=== PATIENT | female | born 1950 | race Caucasian/White ===

== ENCOUNTER → 2020-03-27 08:49 | Outpatient (BNVA) | payer BC, SELFPAY | PROVIDERS: PCP Internal Medicine; Visit Provider Hospitalist ==

== ENCOUNTER 2020-11-20 07:54 | Outpatient (REF) | payer MEDICARE, SELFPAY ==
--- NOTE | 2020-11-20 16:45 | PFT_ITS ---
Forced vital capacity is slightly decreased. FEV1, [id number], and MVV are normal. Post bronchodilator therapy, there is a small improvement in FVC, FEV1, and significant improvement in [id number]. Total lung capacity and residual volume normal. Diffusion capacity normal. CONCLUSION: A mild bronchospastic component with good response to bronchodilator therapy is noted. These findings are consistent with mild bronchial asthma. Clinical correlation is recommended. MD EZRA Jade/ELPIDIO / [id number]
== END 2020-11-20 07:55 | disposition home or self-care (01) ==
LOC: HO.RESP 07:54
PROVIDERS: PCP Family Medicine; Visit Provider Hospitalist
DX: J98.4 Other disorders of lung (principal)
CPT/HCPCS: 94060; 94727; 94729

== ENCOUNTER → 2020-11-21 10:08 | Outpatient (BNVA) | payer MEDICARE, SELFPAY | PROVIDERS: PCP Family Medicine; Visit Provider Hospitalist | DX: J98.4 Other disorders of lung (principal); J45.20 Mild intermittent asthma, uncomplicated; D86.9 Sarcoidosis, unspecified; R91.8 Other nonspecific abnormal finding of lung field | CPT/HCPCS: 99212 ==

== ENCOUNTER → 2021-11-27 08:50 | Outpatient (BNVA) | payer MEDICARE, SELFPAY | PROVIDERS: PCP Family Medicine; Visit Provider Hospitalist | DX: J45.20 Mild intermittent asthma, uncomplicated (principal); D86.9 Sarcoidosis, unspecified; J98.4 Other disorders of lung; R91.8 Other nonspecific abnormal finding of lung field | CPT/HCPCS: 99212 ==

== ENCOUNTER 2023-02-25 10:18 | Outpatient (AMB) | payer MEDICARE, SELFPAY ==
[2023-02-25 10:24] VITALS: PULSE 80; O2SAT 95; BMI 35.8
--- NOTE | 2023-02-25 10:24 | MHC.OFFVIS ---
Intake Vital Signs 02/25/23 10:24 Height 5 ft 5 in Weight 215 lb BMI 35.8 Pulse 80 Pulse Source Pulse Oximeter Pulse Oximetry (%) 95 Oxygen Delivery Method Room Air Intake Visit Reasons: S/p ct chest Dairy Nutritionist Required: No Allergies acetaminophen [Midol] Allergy (Severe, Verified 02/25/23 10:25) Rash pamabrom [Midol] Allergy (Severe, Verified 02/25/23 10:25) Rash PCN Allergy (Severe, Uncoded 02/25/23 10:25) Rash Sulfa Drugs Allergy (Severe, Uncoded 02/25/23 10:25) Rash HPI HPI Comments History of Present Illness Details The patient is a 72-year-old woman with a known history of asthma, sarcoidosis and pulmonary nodules. She has been complaining of dyspnea on exertion. Her previous pulmonary function studies also demonstrated a restrictive pattern. He was reassuring she did not have any interstitial lung disease and or any parenchymal lung disease on her CT scan from January 2018. She did have stable pulmonary nodules. The patient is due for another CT scan and will plan to do it early next year. The patient now is going to the gym and is going to start weight watchers to see if she can decrease her BMI. She continues to use her rescue inhaler prior to exercise. She has been taking Singulair at nighttime with good effect. Otherwise the patient is without any other complaints. 08/23/2019 the patient is here for pulmonary follow-up visit. She has underlying sarcoidosis and asthma. She continues to have dyspnea on exertion. She did have pulmonary function studies demonstrating a restrictive ventilatory defect consistent with restrictive lung disease. Compared to her previous pulmonary function studies there is a significant decrease in the her diffusing capacity. We did request a CT scan of the chest that was denied by her insurance for unclear reason. She has underlying pulmonary nodules, restrictive lung disease, abnormal PFTs and she symptomatic. Therefore, I will reorder the CT scan in order to assess her ongoing symptoms and her abnormal PFTs. She continues on her respiratory therapy with partial effect. 11/27/2021 the patient is here for a pulmonary follow-up visit. Reason in the last few weeks she started developing worsening respiratory symptoms with cough and shortness of breath. Positive sick contacts. COVID testing was negative. She was using her inhaler more often. She is now closed at the baseline although she still feels some shortness of breath with exertion. Patient last CT scan was last year in . it appeared that she had multiple pulmonary nodules. Patient also has a significant history of lung cancer in the family both her sister and father. Therefore, at this point will go ahead and wait for her underlying symptoms to improve will request a CT scan to monitor closely the pulmonary nodules. The patient is a worsening symptoms will consider getting PET scan12 earlier to assess the underlying process. She continues use respiratory medicine and also her allergy medicine. Denies any visual changes or any other finding to suggest active sarcoidosis. 02/25/2023 The patient is here for a pulmonary follow up visit. Overall doing well. Denies any new respiratory complaints. Does complain of exertional dyspnea, mild in severity. She is looking to start weight watchers to help with her weight management. Has not requiered her SEVERIANO. We did review her latest CT chest 02/03/2023 demonstrating pulmnary nodules and some tree in bud. No evidence of active sarcoidosis at this time. [facility] Medical History (Updated 02/25/23 @ 10:48 by Maksim Fitzpatrick MD) Asthma Pulmonary nodules Chronic restrictive lung disease Sarcoidosis Social History (Updated 11/21/20 @ 10:20 by ROSHNI Lion) Patient Tobacco Use Status: Never used Tobacco Review of Systems Const Denies night sweats and Reports weight gain ENT Denies change in voice, Denies lip swelling, Denies mouth pain, Reports nasal congestion, Reports nasal discharge and Denies tongue swelling Card Denies chest pain and Reports dyspnea on exertion Resp Reports cough and Reports dyspnea on exertion GI Denies abdominal pain Musc Denies no additional complaints Neuro Denies Neuro-related abnormal movements Psych Denies no additional complaints Sam/Lymph Denies easy bleeding and Denies lymphadenopathy Aller/Immun Denies lip swelling and Denies tongue swelling Physical Exam Vital Signs: Last Vital Signs Pulse 80 02/25/23 10:24 Pulse Ox 95 02/25/23 10:24 Oxygen Delivery Method Room Air 02/25/23 10:24 BMI result Body Mass Index 35.8 Const General: alert Neck Neck: Yes normal visual inspection, Yes full ROM and Yes no lymphadenopathy Chest Chest palpation & inspection: normal inspection of the chest Resp Auscultation: diminished lung sounds Cardio Rate: regular rate Rhythm: regular rhythm Heart sounds: S2 normal heart sound present GI Palpation (GI): Soft to palpation and nontender Auscultation: normal bowel sounds General: Yes no CVA tenderness Back/Spine/Pelvis Back: no CVA tenderness Skin General skin exam: rashes and/or lesions noted Assessment & Plan Assessment & Plan (1) Sarcoidosis: Code(s): D86.9 - Sarcoidosis, unspecified Plan: SEVERIANO as needed (2) Chronic restrictive lung disease: Code(s): J98.4 - Other disorders of lung Plan: No longer appreciated on recent pulmonary function studies with a normal total lung capacity now (3) Pulmonary nodules: Code(s): R91.8 - Other nonspecific abnormal finding of lung field (4) Asthma: Code(s): J45.909 - Unspecified asthma, uncomplicated Qualifiers: Asthma complication type: uncomplicated Asthma persistence: intermittent Asthma severity: mild Qualified Code(s): J45.20 - Mild intermittent asthma, uncomplicated Plan CT chest in 12 months continue singular daily short-acting beta agonist as needed follow-up in 1 year Medications: Changed From albuterol sulfate 90 mcg/actuation (Ventolin HFA) 2 puffs PO Q4-6H PRN 54 grams 0RF for wheezing To albuterol sulfate 90 mcg/actuation (Ventolin HFA) 2 puffs PO Q4-6H 90 days 54 grams 3RF for wheezing Coding Level of Care Code Est Pt Level 4 (90881) Diagnoses Sarcoidosis D86.9 Chronic restrictive lung disease J98.4 Pulmonary nodules R91.8 Mild intermittent asthma without complication J45.20 Asthma complication type: uncomplicated Asthma persistence: intermittent Asthma severity: mild Time Spent (min) 16
== END 2023-02-25 10:45 | disposition home or self-care (01) ==
PROVIDERS: PCP Family Medicine; Visit Provider Hospitalist
DX: D86.9 Sarcoidosis, unspecified (principal); J98.4 Other disorders of lung; R91.8 Other nonspecific abnormal finding of lung field; J45.20 Mild intermittent asthma, uncomplicated
CPT/HCPCS: 99214

== ENCOUNTER → 2023-02-25 10:18 | Outpatient (BNVA) | payer MEDICARE, SELFPAY | PROVIDERS: PCP Family Medicine; Visit Provider Hospitalist | DX: D86.9 Sarcoidosis, unspecified (principal); J98.4 Other disorders of lung; R91.8 Other nonspecific abnormal finding of lung field; J45.20 Mild intermittent asthma, uncomplicated; Z79.899 Other long term (current) drug therapy | CPT/HCPCS: 99212 ==

== ENCOUNTER 2024-03-30 14:48 | Outpatient (AMB) | payer MEDICARE, SELFPAY ==
--- NOTE | 2024-03-30 14:50 | MHC.OFFVIS ---
Vital Signs 03/30/24 14:51 Height 5 ft 4 in Weight 227 lb 1.218 oz BMI 39.0 BP 142/76 H Blood Pressure Location Rt brachial Position Sitting Pulse 88 Pulse Source Pulse Oximeter Pulse Oximetry (%) 97 Oxygen Delivery Method Room Air Intake Visit Reasons: Asthma Allergies acetaminophen [Midol] Allergy (Severe, Verified 03/30/24 14:53) Rash pamabrom [Midol] Allergy (Severe, Verified 03/30/24 14:53) Rash PCN Allergy (Severe, Uncoded 03/30/24 14:53) Rash Sulfa Drugs Allergy (Severe, Uncoded 03/30/24 14:53) Rash HPI Comments Details: The patient is a 73-year-old woman with a known history of asthma, sarcoidosis and pulmonary nodules. She has been complaining of dyspnea on exertion. Her previous pulmonary function studies also demonstrated a restrictive pattern. He was reassuring she did not have any interstitial lung disease and or any parenchymal lung disease on her CT scan from January 2018. She did have stable pulmonary nodules. The patient is due for another CT scan and will plan to do it early next year. The patient now is going to the gym and is going to start weight watchers to see if she can decrease her BMI. She continues to use her rescue inhaler prior to exercise. She has been taking Singulair at nighttime with good effect. Otherwise the patient is without any other complaints. 08/23/2019 the patient is here for pulmonary follow-up visit. She has underlying sarcoidosis and asthma. She continues to have dyspnea on exertion. She did have pulmonary function studies demonstrating a restrictive ventilatory defect consistent with restrictive lung disease. Compared to her previous pulmonary function studies there is a significant decrease in the her diffusing capacity. We did request a CT scan of the chest that was denied by her insurance for unclear reason. She has underlying pulmonary nodules, restrictive lung disease, abnormal PFTs and she symptomatic. Therefore, I will reorder the CT scan in order to assess her ongoing symptoms and her abnormal PFTs. She continues on her respiratory therapy with partial effect. 11/27/2021 the patient is here for a pulmonary follow-up visit. Reason in the last few weeks she started developing worsening respiratory symptoms with cough and shortness of breath. Positive sick contacts. COVID testing was negative. She was using her inhaler more often. She is now closed at the baseline although she still feels some shortness of breath with exertion. Patient last CT scan was last year in . it appeared that she had multiple pulmonary nodules. Patient also has a significant history of lung cancer in the family both her sister and father. Therefore, at this point will go ahead and wait for her underlying symptoms to improve will request a CT scan to monitor closely the pulmonary nodules. The patient is a worsening symptoms will consider getting PET scan12 earlier to assess the underlying process. She continues use respiratory medicine and also her allergy medicine. Denies any visual changes or any other finding to suggest active sarcoidosis. 02/25/2023 The patient is here for a pulmonary follow up visit. Overall doing well. Denies any new respiratory complaints. Does complain of exertional dyspnea, mild in severity. She is looking to start weight watchers to help with her weight management. Has not requiered her SEVERIANO. We did review her latest CT chest 02/03/2023 demonstrating pulmnary nodules and some tree in bud. No evidence of active sarcoidosis at this time. 03/30/2024 the patient is here for a pulmonary follow-up visit. Overall she has been doing well for the last year. She has not had any respiratory complaints. Her became sick and she would be very concerned about him. She tried to switch actually her appointment for him but could not be done. For now the patient continues use her rescue inhaler as needed. She has not had any imaging studies since 02/16/2023. At that point she has stable pulmonary nodules. Will have her get an x-ray at this time. She also continues with Singulair. She will have an x-ray at her convenience and she will follow-up in a year. If she has any issues prior to that she will call for an earlier assessment. [facility] Medical History (Updated 02/25/23 @ 10:48 by Maksim Fitzpatrick MD) Asthma Pulmonary nodules Chronic restrictive lung disease Sarcoidosis Social History (Updated 11/21/20 @ 10:20 by ROSHNI Lion) Patient Tobacco Use Status: Never used Tobacco Review of Systems Const Denies night sweats and Reports weight gain ENT Denies change in voice, Denies lip swelling, Denies mouth pain, Reports nasal congestion, Reports nasal discharge and Denies tongue swelling Card Denies chest pain and Reports dyspnea on exertion Resp Reports cough and Reports dyspnea on exertion GI Denies abdominal pain Musc Denies no additional complaints Neuro Denies Neuro-related abnormal movements Psych Denies no additional complaints Sam/Lymph Denies easy bleeding and Denies lymphadenopathy Aller/Immun Denies lip swelling and Denies tongue swelling Physical Exam Vital Signs: Last Vital Signs Pulse 88 03/30/24 14:51 BP 142/76 H 03/30/24 14:51 Pulse Ox 97 03/30/24 14:51 Oxygen Delivery Method Room Air 03/30/24 14:51 BMI result Body Mass Index 39.0 Const General: alert Neck Neck: Yes normal visual inspection, Yes full ROM and Yes no lymphadenopathy Chest Chest palpation & inspection: normal inspection of the chest Resp Auscultation: diminished lung sounds Cardio Rate: regular rate Rhythm: regular rhythm Heart sounds: S2 normal heart sound present GI Palpation (GI): Soft to palpation and nontender Auscultation: normal bowel sounds General: Yes no CVA tenderness Back/Spine/Pelvis Back: no CVA tenderness Skin General skin exam: rashes and/or lesions noted Assessment & Plan Assessment & Plan (1) Sarcoidosis: Code(s): D86.9 - Sarcoidosis, unspecified Category: Medical Plan: SEVERIANO as needed (2) Chronic restrictive lung disease: Code(s): J98.4 - Other disorders of lung Category: Medical Plan: No longer appreciated on recent pulmonary function studies with a normal total lung capacity now (3) Pulmonary nodules: Code(s): R91.8 - Other nonspecific abnormal finding of lung field Category: Medical (4) Asthma: Code(s): J45.909 - Unspecified asthma, uncomplicated Category: Medical Qualifiers: Asthma complication type: uncomplicated Asthma persistence: intermittent Asthma severity: mild Qualified Code(s): J45.20 - Mild intermittent asthma, uncomplicated Plan CXR continue singular daily short-acting beta agonist as needed follow-up in 1 year Orders: Orders XR chest 2V 03/30/24 D86.9 - Sarcoidosis, unspecified Coding Level of Care Code Est Pt Level 4 (90021) Diagnoses Sarcoidosis D86.9 Chronic restrictive lung disease J98.4 Pulmonary nodules R91.8 Mild intermittent asthma without complication J45.20 Asthma complication type: uncomplicated Asthma persistence: intermittent Asthma severity: mild Time Spent (min) 16
--- OUTSIDE RECORDS SUMMARY | 2024-03-30 14:50 | XMS_ITS | Clinical Summary ---
Author Organization [facility] Address [phone] [facility] [place] [address] Care Team Providers Care Bender Machine Operator Name Role Phone Gissell Vale MD Primary Care Provider [phone] Allergies Active Allergy Reactions Criticality Noted Date Comments Aspirin-Caffeine 05/12/2022 Other reaction(s): paplatations Not ALLERGIC Epinephrine Palpitations Low 09/30/2023 Penicillins GI Upset,Hives,Itching,Ra sh,Swelling Low 02/10/1984 Sulfamethoxazole-Trime thoprim GI Upset,Palpitations Low 03/23/2016 Medications Medication Sig Dispensed Refills Start Date End Date Status albuterol sulfate (PROAIR HFA INHL) 11/22/2017 Active fluticasone propionate (FLOVENT HFA) 110 mcg/actuation inhaler 110 mcg as needed. 04/02/2022 Active fluocinolone (DERMA-SMOOTHE) 0.01 % external oil Activ e cycloSPORINE (RESTASIS) 0.05 % suspension Restasis 0.05 % eye drops in a dropperette Active cetirizine (ZYRTEC) 10 MG tablet 09/04/2015 Active calcipotriene-betam ethasone (TACLONEX SCALP) external suspension Taclonex 0.005 %-0.064 % topical suspension Active calcium carbonate 750 mg (300 mg elemental) Chew 2009 Active metroNIDAZOLE (METROCREAM) 0.75 % cream metronidazole 0.75 % topical cream Active montelukast (SINGULAIR) 10 mg tablet montelukast 10 mg tablet 11/22/2020 Active COLLAGEN MISC 3 Scoops by Miscellaneous route. Active Medication-Free TextIndications:WEE N 2 tablets. Indications: WEEN Active b complex vitamins capsule Take 1 capsule by mouth daily. Active Active Problems Problem Noted Date Diagnosed Date Sarcoidosis 01/22/2024 Hair loss 01/22/2024 Multinodular thyroid 05/12/2022 Assessment & Plan (05/12/2022 12:56 PM EDT): History of enlarged thyroid since 1978. Was on LT4 suppression until 1999. First met patient in 09/2018 to follow-up on bilateral thyroid nodules after she had a nondiagnostic FNA of the dominant right 1.3 cm nodule in 02/2018. Follow-up ultrasounds have been stable. Last ultrasound report from 10/22/2021 reviewed, reported stable bilateral small nodules. Overall thyroid size is normal, her globus feeling and some dysphagia is unlikely related to her thyroid. She is clinically euthyroid. Last TSH was normal 1.35 in 08/2021, done by PCP. Since her nodules have been stable we decided to stop doing routine ultrasounds. Encouraged patient to a feels any changes in the thyroid bed. Reviewed symptoms of hypo and hyperthyroidism, and patient to if her concerned. Right lobe 5.1 cc, left lobe 5.1 cc. Right upper to mid 1.2 right nodules unchanged. Solid, TI-RADS 4 nodule stable compared to 07/31/2020. Right mid to inferior 1 cm nodule, TI-RADS 4 stable. Multiple subcentimeter right nodules unchanged. Left upper 1.1 cm mixed cystic and solid, TI-RADS 3 nodule stable. Left lower 1.5 cm spongiform, TI-RADS 2 nodule stable. Encounters Date Type Department Care Team Description 02/27/2024 Orders Only [facility] [address] [place] [address] [place] [id number] Debra Daley MA Sarcoidosis; Hair loss; Nontoxic multinodular goiter 01/17/2024 9:20 AM EST Office Visit [facility] [address] [place] [address] Lottie Gavin MD Multinodular thyroid (Primary Dx); Nontoxic multinodular goiter; Hair loss; Sarcoidosis from Last 3 Months Immunizations Name Administration Dates Next Due COVID-19 (Pre-12/20) Pfizer Vaccine, mRNA, PF 11/21/2020,04/23/2020,04/02/2020 DTaP 01/01/2019 Hepatitis B 02/28/1993 Influenza Quadrivalent Prese rvative Free IM 12/17/2021 Influenza Quadrivalent w/ Pr eservative IM 12/09/2020,12/11/2019,01/01/2019,01/10,01/19/2016 Influenza Trivalent w/ Preservative IM 5,11/28/2013 Pneumococcal conjugate PCV13 12/29/2017 Pneumococcal polysaccharide PPSV23 11/28/2018 Tdap 11/28/2018,11/20/2009 Zoster live 12/20/2013 Social History Tobacco Use Types Packs/Day Years Used Date Smoking Tobacco: Never Smokeless Tobacco: Never Tobacco Cessation:Counseling Given: Not Answered Alcohol Use Standard Drinks/Week Comments Yes 0 (1 standard drink = 0.6 oz pur e alcohol) 3 monthly wine Education Answer Date Recorded Are you interested in more education? Not on kaitlynn e 06/26/2022 Are you concerned about learning? Not on file 06/26/2022 No 06/26/2022 No 06/26/2022 Digital Access Answer Date Recorded No 07/25/2022 No 07/25/2022 Reliable internet access at home? Not on file 07/25/2022 Device with a working camera? Not on file Sex and Gender Information Value Date Recorded Sex Assigned at Not on file Gender Identity Not on file Sexual Orientation Not on file Last Filed Vital Signs Vital Sign Reading Time Taken Comments Blood Pressure 130/60 01/17/2024 9:39 AM EST Pulse 60 01/17/2024 9:39 AM EST Temperature - - Respiratory Rate - - Oxygen Saturation 96% 01/17/2024 9:39 AM EST Inhaled Oxygen Concentration - - Weight 106.1 kg (233 lb 12.8 oz) 01/17/2024 9:39 AM EST Height 164.5 cm (5' 4.76 ) 01/17/2024 9:39 AM ES T Body Mass Index 39.19 01/17/2024 9:39 AM EST Plan of Treatment Health Maintenance Due Date Last Done Comments LIPID PANEL 1952 DEPRESSION SCREENING 1964 HEPATITIS B SCREENING 1970 HEPATITIS C SCREENING 1970 MAMMOGRAM 1992 COLOGUARD 1997 COLONOSCOPY 1997 COLORECTAL CANCER SCREENING 1997 FIT TEST 1997 FOBT 1997 SIGMOIDOSCOPY 1997 VIRTUAL COLONOSCOPY 1997 ZOSTER VACCINES (2 of 3) 02/14/2014 12/20/2013 OSTEOPOROSIS SCREENING INITIAL (ONE-TIME) 2017 INFLUENZA VACCINE (#1) 2023 , 12/17/2021, 12/13/2020, Additional history exists COVID-19 VACCINE ( season) 2023 12/05/2021, 06/09/2021, 11/21/2020, Additional history exists Adult Td,Tdap Booster 11/28/2028 11/28/2018, 010 HEPATITIS B VACCINES Aged Out 02/28/1993 No long er eligible based on patient's age to complete this topic PNEUMOCOCCAL VACCINES (50+ years) Completed 11/28/2018, 12/29/2017 RSV VACCINE Completed 01/25/2023 SMOKING STATUS SCREENING (Once After 26 Yrs) Completed 10/19/2023 HEPATITIS A VACCINES Aged Out No long er eligible based on patient's age to complete this topic HIB VACCINES Aged Out No longer eligi ble based on patient's age to complete this topic MENINGOCOCCAL VACCINES (ACWY) Aged Out No longer eligible based on patient's age to complete this topic Medical Devices Not on file Procedures Procedure Name Priority Date/Time Associated Diagnosis Comments TSH Routine 01/28/2024 3:52 PM EST Nontoxic multinodular goiter Hair loss FREE T4 Routine 01/28/2024 3:52 PM EST Nontoxic multinodular goiter Hair loss CBC Routine 01/28/2024 3:52 PM EST Hair loss IRON AND IRON BINDING CAPACITY Routine 01/28/2024 3:51 PM EST Hair loss 25-OH VITAMIN D Routine 01/28/2024 3:51 PM EST Sarcoidosis from Last 3 Months Results * TSH (01/28/2024 3:52 PM EST) Blood Lottie Gavin MD LAB BLOOD ORDERABLES Performing Organization Address [facility] Co de Phone Number [address] [address] * Free T4 (01/28/2024 3:52 PM EST) Blood Lottie Gavin MD LAB BLOOD ORDERABLES Performing Organization Address [facility] Co de Phone Number [address] [address] * CBC (01/28/2024 3:52 PM EST) Blood Lottie Gavin MD LAB BLOOD ORDERABLES Performing Organization Address [facility] Co de Phone Number [address] [address] * Iron and iron binding capacity (01/28/2024 3:51 PM EST) Blood Lottie Gavin MD LAB BLOOD ORDERABLES Performing Organization Address [facility] Co de Phone Number [address] [phone] * 25-OH vitamin D (01/28/2024 3:51 PM EST) Blood Lottie Gavin MD LAB BLOOD ORDERABLES Performing Organization Address [facility] Co de Phone Number [address] [address] from Last 3 Months Care Teams Bender Machine Operator Relationship Specialty Start Date End Date Gissell Vale MD [address] [place] [address] PCP - General Family Medicine 05/06/22 Additional Source Comments The information contained in this document represents components of the legal health record. It is not the complete legal health record.[facility]
[2024-03-30 14:51] VITALS: BP 142/76; PULSE 88; O2SAT 97; BMI 39.0
--- OUTSIDE RECORDS SUMMARY | 2024-03-30 14:51 | XMS_ITS | Encounter Summary ---
Author Organization [facility] Address [phone] [place] [address] Care Team Providers Care Rn Intensive Care Unit Name Role Phone Gissell Vale MD Primary Care Provider [phone] Encounter Details Date Type Department Care Team (Late st Contact Info) Description 02/27/2024 Orders Only [facility] [address] [place] [address] Debra Daley [place] [address] [place] [address] [email or web address] Sarcoidosis; Hair loss; Nontoxic multinodular goiter Social History Tobacco Use Types Packs/Day Years Used Date Smoking Tobacco: Never Smokeless Tobacco: Never Alcohol Use Standard Drinks/Week Comments Yes 0 [...] on file Sexual Orientation Not on file documented as of this encounter Plan of Treatment Not on file documented as of this encounter Procedures Procedure Name Priority Date/Time Associated Diagnosis Comments TSH Routine 01/28/2024 3:52 PM EST Nontoxic multinodular goiter Hair loss FREE T4 Routine 01/28/2024 3:52 PM EST Nontoxic multinodular goiter Hair loss CBC Routine 01/28/2024 3:52 PM EST Hair loss IRON AND IRON BINDING CAPACITY Routine 01/28/2024 3:51 PM EST Hair loss 25-OH VITAMIN D Routine 01/28/2024 3:51 PM EST Sarcoidosis documented in this encounter Results * TSH (01/28/2024 3:52 PM EST) Blood Lottie Gavin MD LAB BLOOD ORDERABLES Performing Organization Address [facility] Co de Phone Number [address] [address] * Free T4 (01/28/2024 3:52 PM EST) Blood Lottie Gavin MD LAB BLOOD ORDERABLES Performing Organization Address [facility] Co de Phone Number [address] [address] * CBC (01/28/2024 3:52 PM EST) Blood Lottie Gavin MD LAB BLOOD ORDERABLES Performing Organization Address [facility] Co de Phone Number [address] [address] * Iron and iron binding capacity (01/28/2024 3:51 PM EST) Blood Lottie Gavin MD LAB BLOOD ORDERABLES Performing Organization Address [facility] Co de Phone Number [address] [address] * 25-OH vitamin D (01/28/2024 3:51 PM EST) Blood Lottie Gavin MD LAB BLOOD ORDERABLES [facility] [address] [place], [place] [id number] documented in this encounter Visit Diagnoses Diagnosis Sarcoidosis Hair loss Unspecified alopecia Nontoxic multinodular goiter documented in this encounter Care Teams Rn Intensive Care Unit Relationship Specialty Start Date End Date Gissell Vale MD [address] [place] [address] PCP - General Family Medicine 05/06/22 documented as of this encounter Additional Source Comments The information contained in this document represents components of the legal health record. It is not the complete legal health record.[facility]
== END 2024-03-30 15:20 | disposition home or self-care (01) ==
PROVIDERS: PCP Family Medicine; Visit Provider Hospitalist
DX: D86.9 Sarcoidosis, unspecified (principal); J98.4 Other disorders of lung; R91.8 Other nonspecific abnormal finding of lung field; J45.20 Mild intermittent asthma, uncomplicated
CPT/HCPCS: 99214

== ENCOUNTER → 2024-03-30 14:48 | Outpatient (BNVA) | payer MEDICARE, SELFPAY | PROVIDERS: PCP Family Medicine; Visit Provider Hospitalist | DX: J45.20 Mild intermittent asthma, uncomplicated (principal); J98.4 Other disorders of lung; D86.9 Sarcoidosis, unspecified; R91.8 Other nonspecific abnormal finding of lung field | CPT/HCPCS: 99212 ==